=== PATIENT | male | born 1955 | race Caucasian/White ===

== ENCOUNTER → 2017-05-16 | Outpatient (CLI) | payer BC ==
[~2017-05-16] VITALS: Ht 177.8 cm; Wt 125.1 kg
[~2017-05-16] MED LIST: LISI-725; METO50TA16; SIMV40TA2
[2017-05-16 12:12] VITALS: BP 152/78; PULSE 65; Ht 177.8 cm; Wt 125.1 kg
== END | disposition home or self-care (01) ==
LOC: C.NEUR 12:01
PROVIDERS: ATTEND Internal Medicine Pulmonary Disease
DX: G47.33 Obstructive sleep apnea (adult) (pediatric) (principal)